=== PATIENT | male | born 1955 | race Two or more races ===

== ENCOUNTER → 2018-02-27 | Outpatient (CLI) | payer OTHER ==
--- NOTE | 2018-02-27 12:00 | Diagnostic Imaging Report ---
PROCEDURE:L-SPINE COMPLETE COMPARISON:None. INDICATIONS:SPONDYLOSIS WITH MYELOPATHY FINDINGS: There are 5 lumbar-type vertebral bodies. There is an elongated left transverse process of L1. The vertebral bodies are well-aligned without evidence of spondylolisthesis. There are no fractures, lytic or blastic lesions. Diffuse disc space narrowing and endplate osteophytic lipping is present at L3-4, L4-5, and L5-S1. There is diffuse facet arthropathy of the lower levels. No pars defects. Vertebral body heights are symmetric. No abnormalities of the sacroiliac joints or visualized portion of the hips. Bowel gas pattern is unremarkable. There are diffuse calcifications throughout the arterial structures. CONCLUSION: Degenerative changes of the spine. No evidence of compression fracture or listhesis. Dictated by: Hailee Rojas M.D. on 02/27/2018 at 12:01 Electronically approved by: Hailee Rojas M.D. on 02/27/2018 at 12:01
--- NOTE | 2018-02-27 12:02 | Diagnostic Imaging Report ---
PROCEDURE:SACRUM X-RAY TECHNIQUE:AP and lateral images performed. INDICATION:Chronic back pain COMPARISON:None. FINDINGS: No evidence of fracture. No focal osseous lesions. Sacroiliac joints are widely patent. No abnormalities of the pubic symphysis or visualized portions of the hips. There are multiple pelvic phleboliths as well as arterial calcifications. CONCLUSION: No abnormalities of the sacroiliac joints or sacrum to explain pain. Other findings as described above. Dictated by: Hailee Rojas M.D. on 02/27/2018 at 12:03 Electronically approved by: Hailee Rojas M.D. on 02/27/2018 at 12:03
== END ==
LOC: RAD 10:47
PROVIDERS: ATTEND Internal Medicine
DX: M47.16 Other spondylosis with myelopathy, lumbar region (principal)
CPT/HCPCS: 72110; 72220